=== PATIENT | female | born 1960 | race Two or more races ===

== ENCOUNTER 2019-06-09 11:38 | Outpatient (CLI) | payer OTHER ==
[~2019-06-09] VITALS: Ht 157.5 cm; Wt 97.5 kg
== END 2019-06-09 13:43 | disposition home or self-care (01) ==
LOC: OFIC 805 11:38
DX: H81.13 Benign paroxysmal vertigo, bilateral (principal)

== ENCOUNTER 2021-10-04 09:13 | Outpatient (CLI) | payer OTHER | END 2021-10-04 09:43 | disposition home or self-care (01) | LOC: MAMO-SONO 09:13 | PROVIDERS: ATTEND Obstetrics & Gynecology | DX: N60.11 Diffuse cystic mastopathy of right breast (principal) ==

== ENCOUNTER 2022-02-03 14:25 | Emergency (ER) | payer OTHER ==
[~2022-02-03] VITALS: Ht 154.9 cm; Wt 81.6 kg
[2022-02-03] MEDS ORDERED: MOUNJARO7.5 MG/0.5 SQ (15:03)
[2022-02-03] MEDS ORDERED: COZAAR100 MG PO (15:04)
[2022-02-03] MEDS ORDERED: OPTIMAL D31250 MCG PO (15:04)
[2022-02-03] MEDS ORDERED: DICLOFENAC SODI75 MG PO (17:31)
== END 2022-02-03 18:23 | disposition home or self-care (01) ==
LOC: ER 14:25
DX: S49.82XA Other specified injuries of left shoulder and upper arm, initial encounter (principal); W19.XXXA Unspecified fall, initial encounter; Y93.89 Activity, other specified; Y92.89 Other specified places as the place of occurrence of the external cause; G89.11 Acute pain due to trauma; M25.512 Pain in left shoulder

== ENCOUNTER 2022-06-24 16:30 | Emergency (ER) | payer OTHER ==
[~2022-06-24] VITALS: Ht 157.5 cm; Wt 76.2 kg
[~2022-06-24 16:30] MED LIST: COZAAR100 MG PO; DICLOFENAC SODI75 MG PO; MOUNJARO7.5 MG/0.5 SQ; OPTIMAL D31250 MCG PO
== END 2022-06-24 21:51 | disposition home or self-care (01) ==
LOC: ER 16:30
DX: K29.70 Gastritis, unspecified, without bleeding (principal)